=== PATIENT | male | born 1950 | race Caucasian/White ===

== ENCOUNTER 2018-04-27 07:44 | Emergency (ER) | payer BC, MEDICARE ==
--- NOTE | 2018-04-27 08:28 | UC ---
Lower Extremity/Ankle HPI - HPI Summary HPI Summary: 67-year-old male comes to clinic today with a chief complaint of right leg pain. He woke up this pain 2 days ago. It starts in his right buttock and goes down to the lateral knee and lateral calf. He also reports some swelling in the right foot and ankle. Pain is worse with movement of the right leg. He has chronic back pain and has had several back surgeries. This pain reminds him of his sciatic nerve being irritated from his back. His back pain today is not worse than usual. He's got some chronic numbness and weakness in the right leg he says that he's had for years since prior to his previous back surgeries. The last back surgery was approximately 3 years ago. Denies any difficulty controlling urine or bowel or new weakness or numbness. Pain is a 6 out of 10. No prior history of any blood clots. - History of Current Complaint Chief Complaint: UCLowerExtremity Stated Complaint: R LEG INJURY Time Seen by Provider: 04/27/18 08:00 Pain Intensity: 7 - Allergies/Home Medications Allergies/Adverse Reactions: Allergies Allergy/AdvReac Type Severity Reaction Status Date / Time HAY FEVER Allergy Mild Congestion Uncoded 04/27/18 07:54 Home Medications: Home Medications Multivitamin [Multivitamins] 1 cap PO DAILY 04/27/18 [History Confirmed 04/27/18 ] PMH/Surg Hx/FS Hx/Imm Hx Previously Healthy: Yes - chronic low back pain. Spinal stenosis. He has been the pain clinic Endocrine History: Diabetes, Dyslipidemia Cardiovascular History: Hypertension - Surgical History Surgical History: Yes Surgery Procedure, Year, and Place: [facility] X 3 - Social History Alcohol Use: None Substance Use Type: None Smoking Status (MU): Former Smoker Type: Cigarettes Length of Time of Smoking/Using Tobacco: 25 YRS Have You Smoked in the Last Year: No When Did the Patient Quit Smoking/Using Tobacco: 2008 - Immunization History Most Recent Influenza Vaccination: Never Most Recent Tetanus Shot: 2-3 years ago Most Recent Pneumonia Vaccination: never Review of Systems All Other Systems Reviewed And Are Negative: Yes Constitutional: Positive: Negative Skin: Positive: Negative Eyes: Positive: Negative ENT: Positive: Negative Respiratory: Positive: Negative Cardiovascular: Positive: Negative Gastrointestinal: Positive: Negative Motor: Positive: Other - SEE HPI Neurovascular: Positive: Other - SEE HPI Musculoskeletal: Positive: Other: - SEE HPI Neurological: Positive: Other - SEE HPI Psychological: Positive: Negative Is Patient Immunocompromised?: No Physical Exam Triage Information Reviewed: Yes Appearance: Well-Appearing, Well-Nourished, Pain Distress - MILD WITH AMBULATION Vital Signs: Initial Vital Signs Temp 97.3 F 04/27/18 07:49 Pulse 76 04/27/18 07:49 Resp 14 04/27/18 07:49 BP 193/88 04/27/18 07:49 Pulse Ox 100 04/27/18 07:49 Vital Signs Reviewed: Yes Eye Exam: Normal Eyes: Positive: Conjunctiva Clear Neck exam: Normal Neck: Positive: Supple Respiratory: Positive: No respiratory distress Musculoskeletal: Positive: Other: - Patient is tender to palpation along the sciatic distribution from the right buttock down through the right lateral calf. He does have some edema bilaterally is worse on the right leg than the left leg. On examination he does not report any decreased sensation. Normal dorsalis pedis pulses capillary refill is normal. Plantar flexion and dorsiflexion bilaterally is 5 out of 5 as is knee flexion and extension. Hip flexion bilaterally does not increase the pain. The knee flexion and extension plantar dorsiflexion plantar flexion does increase the pain. No calf pain with palpation. Neurological: Positive: Alert Psychological Exam: Normal Psychological: Positive: Normal Response To Family, Age Appropriate Behavior Skin Exam: Normal Lower Extremity Course/Dx - Course Course Of Treatment: Order Information: VL LOWER EXT VEINS RIGHT. Accession Number: [id number]. CPT: 00481. INDICATION: RIGHT buttock lateral thigh, and foot pain and swelling. Tobacco use. COMPARISON: No relevant prior exams available on the [facility] PACS for comparison. TECHNIQUE: White scale, color Doppler , and spectral analysis of the deep veins of the. RIGHT lower extremity. Vessel compression, phasicity, and augmentation assessed. REPORT: The RIGHT common femoral, great saphenous, profunda femoral, femoral, popliteal,. peroneal, and posterior tibial veins are patent. Patency of the LEFT common femoral vein documented. IMPRESSION: No evidence for RIGHT lower extremity deep venous thrombosis. . <Electronically signed by Fran De Souza MD in OV> 04/27/18 1039. I discussed the ultrasound report with patient. Pain is most likely sciatica. At this time he'll continue his ibuprofen and his hydrocodone that are prescribed by his primary care doctor. He'll be following up with his primary care doctor. Nose is if he has any weakness or numbness or difficulty controlling urine or bowel he needs to get evaluated right away. He will be talking to his primary care doctor about potentially getting an MRI. - Differential Dx/Diagnosis Provider Diagnosis: Right leg pain Discharge - Sign-Out/Discharge Documenting (check all that apply): Patient Departure All imaging exams completed and their final reports reviewed: Yes - Discharge Plan Condition: Stable Disposition: HOME Patient Education Materials: Sciatica (ED), Leg Edema (ED), Lower Back Exercises (ED) Referrals: Anupam Matson MD [Primary Care Provider] - Additional Instructions: FOLLOW UP WITH YOUR PRIMARY CARE DOCTOR.. GET RECHECKED SOONER FOR ANY WORSENING OF YOUR CONDITION; WEAKNESS, NUMBNESS, DIFFICULTY CONTROLLING BOWEL OR BLADDER OR QUESTIONS OR CONCERNS. - Billing Disposition and Condition Condition: STABLE Disposition: Home
[2018-04-27 09:46] VITALS: BP 160/83
== END 2018-04-27 10:23 | disposition home or self-care (01) ==
LOC: UCEAST 07:44
DX: M79.604 Pain in right leg (principal); I10 Essential (primary) hypertension; Z87.891 Personal history of nicotine dependence
CPT/HCPCS: 99211; G0463

== ENCOUNTER 2019-12-31 05:33 | Inpatient (IN) ==
[2019-12-31] MEDS ORDERED: Buffered Lidocaine 1% SYRIN 1 ml INTRADERM ONE (06:00)
[2019-12-31] MEDS ORDERED: Lactated Ringers 1000 ml BAG 1,000 ML IV SCH (06:00)
[2019-12-31] MEDS ORDERED: ceFAZolin 1 GM ADVAN 1 GM ADDV.VIAL IVPB ONE (06:22)
[2019-12-31] MEDS ORDERED: ceFAZolin 2 GM PREMIX 2 GM/50 ML BAG ONE (06:22)
[2019-12-31] MEDS ORDERED: Lidocaine 2% PF 5 ML VIAL ONE (07:24)
[2019-12-31] MEDS ORDERED: Propofol 10 MG/ML 20 ML BTL ONE (07:24)
[2019-12-31] MEDS ORDERED: fentaNYL 250 mcg/5 ml 50 MCG/ML 5 ml VIAL (250 MCG) ONE (07:24)
[2019-12-31] MEDS ORDERED: Rocuronium 50 mg VIAL 10 mg/ml 5 ml VIAL (50 mg) ONE (07:24)
[2019-12-31] MEDS ORDERED: Midazolam 2 mg/2 ml VIAL 1 mg/ml 2 ml VIAL (2 mg) ONE (07:24)
[2019-12-31] MEDS ORDERED: ROPIVACAINE 5 MG/ML 30 ML BTL (0.5%) ONE (07:27)
[2019-12-31] MEDS ORDERED: Bupivacaine 0.25% EPI 200,000 30 ML SDV ONE (07:42)
[2019-12-31] MEDS ORDERED: Phenylephrine 40 mcg/mL 10mL (400mcg) SYRINGE ONE (08:03)
[2019-12-31] MEDS ORDERED: EPHEDrine (Pressors) 50 MG/ML VIAL ONE (08:15)
[2019-12-31] MEDS ORDERED: HYDROmorphone 1 MG/1 ML SYRINGE ONE ×4 (08:28→11:41)
[2019-12-31] MEDS ORDERED: Ondansetron 4 mg VIAL 2 MG/ML 2 ml VIAL ONE ×3 (08:43→12:34)
[2019-12-31] MEDS ORDERED: fentaNYL 100 mcg/2 ml 50 MCG/ML VIAL ONE (08:51)
[2019-12-31] MEDS ORDERED: Prochlorperazine 5 mg/ml 2 ml VIAL (10 mg) IV PRN (08:56)
[2019-12-31] MEDS ORDERED: HYDROmorphone 1 MG/1 ML SYRINGE IV PRN (08:56)
[2019-12-31] MEDS ORDERED: diPHENhydraMINE IV 50 MG/ML 1 ml VIAL (BENADRYL) IV PRN ×2 (08:56→11:20)
[2019-12-31] MEDS ORDERED: Naloxone 0.4 mg VIAL 0.4 mg/ml 1 ml VIAL IV PRN (08:56)
[2019-12-31] MEDS ORDERED: Magnesium Hydroxide LIQ 30 ML UDC PO PRN (11:20)
[2019-12-31] MEDS ORDERED: Morphine 2 MG/ML SYRINGE IV PRN (11:20)
[2019-12-31] MEDS ORDERED: Ondansetron 4 mg VIAL 2 MG/ML 2 ml VIAL IV PRN (11:20)
[2019-12-31] MEDS ORDERED: Ondansetron ODT 4 mg TAB 4 MG TAB PO PRN (11:20)
[2019-12-31] MEDS ORDERED: diPHENhydraMINE 25 mg TAB PO PRN (11:20)
[2019-12-31] MEDS ORDERED: Lactulose 30 ml UDC PO PRN (11:20)
[2019-12-31] MEDS ORDERED: Polyethylene Glycol 3350 17 GM PACKET PO PRN (11:20)
[2019-12-31] MEDS ORDERED: oxyCODONE/Acetamin 5/325 mg TAB ONE (11:55)
[2019-12-31] MEDS ORDERED: Dextrose 50% Syringe 50 ml 25 GM/50 ML SYRINGE IV PUSH PRN (12:27)
[2019-12-31] MEDS ORDERED: Dexamethasone IV 4 MG/ML VIAL 1 ml VIAL ONE (12:34)
[2019-12-31] MEDS: Lactated Ringers 1000 ml BAG 1,000 ML IV SCH ×2 (12:46→23:37)
[2019-12-31] MEDS ORDERED: Glycopyrrolate IV 0.2 MG/ML 1 ML VIAL ONE (14:04)
[2019-12-31] MEDS ORDERED: Neostigmine Methylsulfate 3 MG/3 ML SYRINGE ONE (14:04)
[2019-12-31] MEDS: oxyCODONE/Acetamin 5/325 mg TAB PO PRN ×2 (15:35→21:30)
[2019-12-31] MEDS: ceFAZolin 1 GM ADVAN 1 GM in NS 0.9% 50 ML 50 ML IVPB SCH ×2 (16:02→23:39)
[2019-12-31] MEDS ORDERED: GLIPIZIDE METFORMIN PO SCH (21:00)
[2019-12-31] MEDS: Magnesium Hydroxide LIQ 30 ML UDC PO SCH (21:32)
[2020-01-01] MEDS: oxyCODONE/Acetamin 5/325 mg TAB PO PRN ×4 (05:07→21:32)
[2020-01-01 05:12] LABS: Hematocrit 30 % (42-52); Mean Platelet Volume 7.2 fL (7.4-10.4); Platelet Count 414 10^3/uL (150-450)
[2020-01-01 05:43] LABS: BUN/Creatinine Ratio 22.7 (8-20); Calcium 9.9 mg/dL (8.6-10.3); EGFR African American 45.5 (>60); EGFR Non-African American 37.6 (>60); Potassium 4.2 mmol/L (3.5-5.0)
[2020-01-01] MEDS: Magnesium Hydroxide LIQ 30 ML UDC PO SCH ×2 (08:13→21:33)
[2020-01-01] MEDS: Vitamin THERAPEUTIC TAB PO SCH (08:14)
[2020-01-01] MEDS: ceFAZolin 1 GM ADVAN 1 GM in NS 0.9% 50 ML 50 ML IVPB SCH (08:31)
[2020-01-01] MEDS: Insulin GLARGINE 100 un/ml 10 ml VIAL SUBCUT SCH (08:40)
[2020-01-01] MEDS ORDERED: Lisinopril/HCTZ 20/12.5 TB(NF) PO SCH (09:00)
[2020-01-01] MEDS ORDERED: Insulin GLARGINE 100 un/ml 10 ml VIAL SUBCUT SCH (09:00)
[2020-01-02] MEDS: oxyCODONE/Acetamin 5/325 mg TAB PO PRN ×3 (03:23→15:20)
[2020-01-02 06:39] LABS: Hematocrit 27 % (42-52); Hemoglobin 9.3 g/dL (14.0-18.0); Mean Platelet Volume 7.3 fL (7.4-10.4); Platelet Count 343 10^3/uL (150-450)
[2020-01-02] MEDS: Magnesium Hydroxide LIQ 30 ML UDC PO SCH (08:34)
[2020-01-02] MEDS: Vitamin THERAPEUTIC TAB PO SCH (08:34)
[2020-01-02] MEDS: Insulin GLARGINE 100 un/ml 10 ml VIAL SUBCUT SCH (08:47)
[2020-01-02 11:21] VITALS: BP 137/49
[2020-01-02 14:58] LABS: Calcium 9.7 mg/dL (8.6-10.3); Potassium 4.6 mmol/L (3.5-5.0)
[2020-01-02 15:04] LABS: BUN/Creatinine Ratio 18.4 (8-20); EGFR African American 53.2 (>60)
== END 2020-01-02 16:15 | disposition home health service (06) | DRG 302 ==
LOC: AA 05:33 → SSU 11:20
PROVIDERS: ADMIT Orthopaedic Surgery; ATTEND Orthopaedic Surgery

== ENCOUNTER 2022-07-30 08:03 | Observation (INO) ==
[~2022-07-30 08:03] MED LIST: Buffered Lidocaine 1% SYRIN 1 ml INTRADERM ONE; NS 0.9% 1000 ml BAG 1,000 ML IV SCH
[2022-07-30] MEDS ORDERED: Lidocaine 1% w EPI 1:100,000 MDV 20 ML VIAL ONE (12:32)
[2022-07-30] MEDS ORDERED: Ondansetron 4 mg VIAL 2 MG/ML 2 ml VIAL ONE (13:05)
[2022-07-30] MEDS ORDERED: Propofol 10 MG/ML 20 ML BTL ONE (13:05)
[2022-07-30] MEDS ORDERED: Dexamethasone IV 4 MG/ML VIAL 1 ml VIAL ONE (13:05)
[2022-07-30] MEDS ORDERED: Metoclopramide 5 MG/ML VIAL (10 mg) ONE (13:05)
[2022-07-30] MEDS ORDERED: fentaNYL 250 mcg/5 ml 50 MCG/ML 5 ml VIAL (250 MCG) ONE (13:05)
[2022-07-30] MEDS ORDERED: Rocuronium 50 mg VIAL 10 mg/ml 5 ml VIAL (50 mg) ONE (13:05)
[2022-07-30] MEDS ORDERED: Succinylcholine 200 mg VIAL 20 mg/ml 10 ml VIAL (200 mg) ONE (13:08)
[2022-07-30] MEDS ORDERED: Scopolamine 1 mg/72hr PATCH ONE (13:19)
[2022-07-30] MEDS ORDERED: Acetaminophen IV 1 GM/100ML 1,000 MG/100 ML BAG IV ONE ×2 (13:27→18:22)
[2022-07-30] MEDS ORDERED: Prochlorperazine 5 mg/ml 2 ml VIAL (10 mg) IV PRN (13:27)
[2022-07-30] MEDS ORDERED: Naloxone 0.4 mg VIAL 0.4 mg/ml 1 ml VIAL IV PRN (13:27)
[2022-07-30] MEDS ORDERED: Phenylephrine 40 mcg/mL 10mL (400mcg) SYRINGE ONE (15:37)
[2022-07-30] MEDS ORDERED: Phenylephrine IV 10 MG/ML 1 ml VIAL ONE (15:46)
[2022-07-30] MEDS ORDERED: Midazolam 2 mg/2 ml VIAL 1 mg/ml 2 ml VIAL (2 mg) ONE (16:20)
[2022-07-30] MEDS ORDERED: Bacitracin OINTMENT TUBE ONE (18:18)
[2022-07-30] MEDS ORDERED: fentaNYL 100 mcg/2 ml 50 MCG/ML VIAL ONE (19:37)
[2022-07-30] MEDS: fentaNYL 100 mcg/2 ml 50 MCG/ML VIAL IV PRN ×3 (19:39→20:05)
[2022-07-30] MEDS ORDERED: Clindamycin 600 MG/D5W BAG 600 MG/50 ML BAG IV ONE (20:11)
[2022-07-30] MEDS ORDERED: oxyCODONE 5 mg/5 ml ORAL.SOLN UDC PO PRN (20:12)
[2022-07-30] MEDS ORDERED: Dextrose 50% Syringe 50 ml 25 GM/50 ML SYRINGE IV PUSH PRN (20:15)
[2022-07-30] MEDS ORDERED: oxyCODONE 5 mg/5 ml ORAL.SOLN UDC PO ONE (20:19)
[2022-07-30] MEDS ORDERED: oxyCODONE 5 mg/5 ml ORAL.SOLN UDC ONE (20:36)
[2022-07-30] MEDS ORDERED: fentaNYL 100 mcg/2 ml 50 MCG/ML VIAL IV PRN (20:45)
[2022-07-30 22:45] LABS: Hematocrit 37 % (42-52); Hemoglobin 11.5 g/dL (14.0-18.0); Mean Corpuscular HGB Conc 31 g/dL (31-36); Mean Corpuscular Hemoglobin 28 pg (27-31); Mean Corpuscular Volume 90 fL (80-94); Red Blood Count 4.11 10^6 /uL (4.18-5.48); Red Cell Distribution Width 16 % (10-15); White Blood Count 21.5 10^3/uL (3.5-10.8)
[2022-07-30 22:53] LABS: ABS Eosinophils 0.1 10^3/ul (0-0.6); ABS Lymphocytes 1.1 10^3/ul (1.0-4.8); ABS Monocytes 0.8 10^3/ul (0-0.8); ABS Neutrophils 19.6 10^3/ul (1.5-7.7); Eosinophil % 0.3 %; Lymphocyte % 5.1 %
[2022-07-31] MEDS: Chlorhexidine MOUTHWASH 0.12% 15 ML UDC SWISH SPIT SCH ×5 (00:10→23:55)
[2022-07-31 00:23] LABS: Calcium 10.3 mg/dL (8.6-10.3); Creatinine, Serum 1.65 mg/dL (0.67-1.17); Magnesium 1.3 mg/dL (1.9-2.7); Phosphorus 4.4 mg/dL (2.5-5.0); Potassium 4.5 mmol/L (3.5-5.0); eGFR CKD-EPI 44.4 (>60)
[2022-07-31 06:55] LABS: ABS Lymphocytes 1.7 10^3/ul (1.0-4.8); ABS Monocytes 1.2 10^3/ul (0-0.8); ABS Neutrophils 10.9 10^3/ul (1.5-7.7); Eosinophil % 0.1 %; Hematocrit 33 % (42-52); Hemoglobin 10.8 g/dL (14.0-18.0); Lymphocyte % 12.4 %; Mean Corpuscular HGB Conc 33 g/dL (31-36); Mean Corpuscular Hemoglobin 29 pg (27-31); Mean Corpuscular Volume 87 fL (80-94); Mean Platelet Volume 7.7 fL (7.4-10.4); Platelet Count 404 10^3/uL (150-450); Red Blood Count 3.78 10^6 /uL (4.18-5.48); Red Cell Distribution Width 15 % (10-15); White Blood Count 13.9 10^3/uL (3.5-10.8)
[2022-07-31] MEDS: oxyCODONE 5 mg/5 ml ORAL.SOLN UDC PO PRN ×3 (08:01→20:47)
[2022-07-31 08:36] LABS: Urine Appearance Clear; Urine Bilirubin Negative (Negative); Urine Blood 1+ (Negative); Urine Color Yellow; Urine Glucose Negative (Negative); Urine Ketones Negative (Negative); Urine Nitrite Negative (Negative); Urine Protein Negative (Negative); Urine Specific Gravity 1.016 (1.002-1.030); Urine Urobilinogen Negative (Negative)
[2022-07-31] MEDS: Pravastatin 20 mg TAB (NF) PO SCH ×2 (08:47→20:46)
[2022-07-31 09:04] LABS: Urine Bacteria Absent (Absent); Urine Red Blood Cell 2+(6-10/hpf) (Absent); Urine White Blood Cell Trace(0-5/hpf) (Absent)
[2022-07-31 11:23] LABS: Calcium 10.6 mg/dL (8.6-10.3); Creatinine, Serum 1.52 mg/dL (0.67-1.17); Magnesium 1.4 mg/dL (1.9-2.7); Potassium 4.8 mmol/L (3.5-5.0)
[2022-07-31] MEDS ORDERED: Magnesium Sulfate IV 3 GM in NS 0.9% 100 ml BAG 100 ML IVPB ONE (11:38)
[2022-07-31] MEDS ORDERED: oxyCODONE 5 mg/5 ml ORAL.SOLN UDC PO PRN (16:52)
[2022-07-31] MEDS ORDERED: Senna TAB 8.6 mg TAB PO PRN (17:17)
[2022-07-31] MEDS ORDERED: Polyethylene Glycol 3350 17 GM PACKET PO PRN (17:17)
[2022-08-01] MEDS: Chlorhexidine MOUTHWASH 0.12% 15 ML UDC SWISH SPIT SCH (05:54)
[2022-08-01] MEDS: oxyCODONE 5 mg/5 ml ORAL.SOLN UDC PO PRN (06:12)
[2022-08-01 06:18] LABS: ABS Basophils 0.1 10^3/ul (0-0.2); ABS Eosinophils 0.1 10^3/ul (0-0.6); ABS Lymphocytes 1.2 10^3/ul (1.0-4.8); ABS Monocytes 1.3 10^3/ul (0-0.8); ABS Neutrophils 9.1 10^3/ul (1.5-7.7); Hematocrit 32 % (42-52); Hemoglobin 10.2 g/dL (14.0-18.0); Lymphocyte % 10.4 %; Mean Corpuscular HGB Conc 32 g/dL (31-36); Mean Corpuscular Hemoglobin 27 pg (27-31); Mean Corpuscular Volume 86 fL (80-94); Mean Platelet Volume 7.6 fL (7.4-10.4); Platelet Count 382 10^3/uL (150-450); Red Blood Count 3.74 10^6 /uL (4.18-5.48); Red Cell Distribution Width 15 % (10-15); White Blood Count 11.8 10^3/uL (3.5-10.8)
[2022-08-01 06:37] LABS: Calcium 10.5 mg/dL (8.6-10.3); Creatinine, Serum 1.54 mg/dL (0.67-1.17); Magnesium 1.8 mg/dL (1.9-2.7); Potassium 4.2 mmol/L (3.5-5.0); eGFR CKD-EPI 48.2 (>60)
[2022-08-01] MEDS: Pravastatin 20 mg TAB (NF) PO SCH (08:11)
[2022-08-01 08:16] VITALS: BP 143/66
== END 2022-08-01 12:04 | disposition home or self-care (01) ==
LOC: OR 08:03 → SSU 08:03
PROVIDERS: ADMIT Hospitalist; ATTEND Otolaryngology